=== PATIENT | female | born 1990 | race Caucasian/White ===

== ENCOUNTER 2022-06-06 07:21 | Inpatient (IN) ==
[2022-06-06] MEDS ORDERED: LIDOCAINE 1% LOCAL 20 ML VIAL INFIL PRN (07:53)
[2022-06-06] MEDS ORDERED: OXYTOCIN 30 UNITS/500 ML BAG IV PRN ×3 (07:53→17:09)
[2022-06-06] MEDS ORDERED: PENICILLIN G POTASSIUM 6 MU in DEXTROSE 5% 250 ML IV STA (07:53)
[2022-06-06 08:35] LABS: Hematocrit (blood only) 33.4 % (34.1-44.9); Hemoglobin 11.8 g/dl (12.0-16.0); Mean Corpuscular Hemoglobin 29.5 pg (25.0-34.0); Mean Corpuscular Hgb Conc 35.3 g/dL (32.0-36.0); Mean Corpuscular Volume 83.5 fL (80.0-100.0); Mean Platelet Volume 10.6 fL (9.4-12.3); Platelet Count 285 K/uL (130-400); RDW Coefficient of Variation 12.7 % (11.5-14.5); RDW Standard Deviation 38.4 fL (36.4-46.3); White Blood Count 10.87 K/ul (4.8-10.8)
[2022-06-06] MEDS: LACTATED RINGER'S 1,000 ML IV PRN ×2 (09:03→14:23)
--- NOTE | 2022-06-06 10:21 | History & Physical Report ---
Date of Service June 06, 2022 Assessment & Plan (1) Encounter for supervision of normal in multigravida, antepartum: Plan: IUP at 39 weeks with SPROM and only mild contractions GBS (+) will start pitocin augmentation of labor epidural analgesia when requested anticipate vaginal Admission and Anticipated Discharge Date Admission Date: June 06, 2022 History of Present Illness Primary Care Provider: Juan Carlos Bartlett DO Patient is 32 yo female EDC 06/14/22 who presents at 39+ weeks with leaking fluid. she had a gush at about 330 of clear fluid and then nothing more until 530 - no contractions noted. GBS (+) otherwise uncomplicated. Allergies Allergy/AdvReac Type Severity Reaction Status Date / Time No Known Allergies Allergy Verified 06/03/22 10:36 Home Medications Medication Instructions Recorded Confirmed Type prenat.vits,jenifer,akt-lpea-jejhy 1 tab PO DAILY 10/27/21 06/06/22 History Patient History Medical History Acne History of chicken pox PCOS (polycystic ovarian syndrome) Surgical History History of arthroscopic knee surgery S/P dilation and curettage D&E 2018 S/P wisdom tooth extraction Family History (Updated 10/27/21 @ 13:43 by Frida Rodriguez RN) Mother Thyroid cancer Preeclampsia Father Skin cancer Grandfather (Paternal) Pulmonary fibrosis Denies family history of Ovarian cancer Prostate cancer Diabetes Breast cancer Lung cancer Colorectal cancer Hypertension Social History (Updated 10/27/21 @ 13:44 by Frida Rodriguez RN) Smoking Status: Never smoker Second Hand Exposure: No; Hx Alcohol Use: No Hx Substance Use: No Preferred Language: Irish Communication Ability: Effective Visual Impairment: Limited Hearing Ability: Normal Battery Tester Required: No Beliefs That Will Affect Care: None marital status: marital status details: Perfecto Wise ) [phone] Current Living Situation: Spouse Current Living Situation Comment: FOB, 1 child and 1 dog current occupational status: 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 Other Information That Helps Us Care for You: No Feels Safe at Home: Yes Safety Concerns: Feels Safe At This Time Childhood Exposure to Second-Hand Smoke: No caffeine: Yes Dental Care, Regularly: Yes Physical Activity Frequency: 1-2 Times per Week Seatbelt Use: always Sunscreen Use: Yes Assistive Devices: None Review of Systems All systems reviewed & are unremarkable except as noted in HPI & below Physical Exam Constitutional: WD/WN, vitals as above Psychiatric: A+Ox3, euthymic affect Genitourinary: OB Exam Abdomen: + vertex (by ultrasound), + estimated weight (6-7 pounds) and + irregular contractions Manual OB Exam: + cervical dilation 2 cm, + cervical effacement 50%, + station high (-3 station) and + amniotic fluid clear and nitrazine positive OB Exam Monitor Tracing: + external FHT monitor used, + external uterine monitor used and + category I Results & Data ([facility]) Vital Signs (Past 12 Hours) Vital Signs Temp Pulse Resp BP 06/06/22 07:42 98.1 F 20 06/06/22 08:45 16 06/06/22 08:45 16 06/06/22 07:34 97 H 124/76 Coding Level of Care Code None Diagnoses Encounter for supervision of normal in multigravida, antepartum Z34.80
[2022-06-06] MEDS ORDERED: PENICILLIN G POTASSIUM 3 MU in DEXTROSE 5% 100 ML IV PRN (10:53)
[2022-06-06] MEDS ORDERED: ePHEDrine sulfate 50 MG/ML AMP ONE (14:09)
[2022-06-06] MEDS ORDERED: LIDOCAINE 2%/EPINEPHRINE 1:200,000 20 ML SDV ONE (14:10)
[2022-06-06] MEDS ORDERED: BUPIVACAINE 0.25% 30 ML VIAL ONE (14:10)
[2022-06-06] MEDS ORDERED: fentaNYL citrate 100 MCG/2 ML VIAL ONE (14:10)
[2022-06-06] MEDS ORDERED: SODIUM CHLORIDE 0.9% INJ 10 ML VIAL ONE (14:10)
[2022-06-06] MEDS ORDERED: fentaNYL 2MCG/ML ROPIVACAINE 1.25MG/ML 100 ML BAG EPI ONE (14:11)
--- NOTE | 2022-06-06 15:34 | Anesthesiology Consultation ---
Date of Service June 06, 2022 Assessment & Plan Chart Review Chart Review: Acceptable Risk for Labor Epidural Consults Requested none History Height/Weight Height: 5 ft 3 in Weight: 80.286 kg Allergies Allergy/AdvReac Type Severity Reaction Status Date / Time No Known Allergies Allergy Verified 06/03/22 10:36 Medications Home Medications Medication Instructions Recorded Confirmed Last Taken prenat.vits,jenifer,yym-[id number] 1 tab PO DAILY 10/27/21 06/06/22 Unknown Active Medications Generic Name Dose Route Start Last Admin Trade Name Freq PRN Reason Stop Dose Admin Oxytocin 30 units in 500 mls @ 3 mls/hr 06/06/22 07:53 06/06/22 13:34 Pitocin IV 06/08/22 07:52 0.18 units/hr .Q24H PRN 3 mls/hr Labor Induction/Augmentation Titration Protocol 0.18 UNITS/HR Lactated Ringer's 1,000 mls @ 125 mls/hr 06/06/22 07:53 06/06/22 14:50 Lr IV 06/08/22 07:52 125 mls/hr .Q8H PRN Infusion L&D Protocol Protocol Penicillin G Potassium 3 mu/ 106 mls @ 100 mls/hr 06/06/22 10:53 06/06/22 14:23 Dextrose IV 06/16/22 10:52 Infused Q4H PRN Infusion GBS(+) Until Delivery Past Medical History Medical History Acne History of chicken pox PCOS (polycystic ovarian syndrome) Past Family History Family History (Updated 10/27/21 @ 13:43 by Frida Rodriguez RN) Mother Thyroid cancer Preeclampsia Father Skin cancer Grandfather (Paternal) Pulmonary fibrosis Denies family history of Ovarian cancer Prostate cancer Diabetes Breast cancer Lung cancer Colorectal cancer Hypertension Past Surgical History Surgical History History of arthroscopic knee surgery S/P dilation and curettage D&E 2018 S/P wisdom tooth extraction Social History Smoking Status: Never smoker Hx Alcohol Use: No Hx Substance Use: No substance use type: does not use Physical Exam Vital Signs Last Vital Signs Temp 36.5 C 06/06/22 13:00 Pulse 84 06/06/22 15:32 Resp 22 06/06/22 14:30 BP 95/51 L 06/06/22 15:32 Pulse Ox 99 06/06/22 15:31 Testing Laboratory Results 06/06/22 08:09
[2022-06-06] MEDS ORDERED: NALOXONE HCL 0.4 MG/1 ML VIAL/CARP IV PRN (15:37)
[2022-06-06] MEDS ORDERED: NALOXONE HCL 1 MG in SODIUM CHLORIDE 0.9% 1000ML 1,000 ML IV PRN (15:37)
[2022-06-06] MEDS ORDERED: fentaNYL 2MCG/ML ROPIVACAINE 1.25MG/ML 100 ML BAG EPI PRN (15:37)
[2022-06-06] MEDS ORDERED: ePHEDrine sulfate 50 MG/ML AMP IV PRN (15:37)
[2022-06-06] MEDS ORDERED: diphenhydrAMINE 50 MG/ML VIAL IV PRN (15:37)
[2022-06-06] MEDS ORDERED: NALBUPHINE HCL INJ 10 MG/ML AMP IV PRN (15:37)
[2022-06-06] MEDS ORDERED: BENZOCAINE 20% AER SPR 82.5 GM CAN EXT PRN (17:09)
[2022-06-06] MEDS ORDERED: HYDROCORTISONE ACETATE 25 MG SUPP PR PRN (17:09)
[2022-06-06] MEDS ORDERED: IBUPROFEN 600 MG TAB PO PRN (17:09)
[2022-06-06] MEDS ORDERED: ACETAMINOPHEN 325 MG TAB PO PRN (17:09)
[2022-06-06] MEDS ORDERED: bisacodyL 10 MG SUPP PR PRN (17:09)
[2022-06-06] MEDS ORDERED: DIPHTHERIA/TETANUS/PERTUSSIS 0.5 ML SYR/VIAL IM ONE (17:09)
--- NOTE | 2022-06-06 17:28 | Anesthesia Procedure Note ---
Date of Service June 06, 2022 Anesthesia Post Epidural Note Vital Signs Vital Signs: Temp Pulse Resp BP Pulse Ox 36.5 C 83 22 113/59 L 99 06/06/22 13:00 06/06/22 17:23 06/06/22 14:30 06/06/22 17:23 06/06/22 16:51 Notes Mental Status: alert / awake / arousable Nausea / Vomiting: adequately controlled Pain: adequately controlled Airway Patency, RR, SpO2: stable & adequate BP & HR: stable & adequate Hydration State: stable & adequate Neuraxial Anesthesia: was administered and sensory block is resolving Anesthetic Complications: no major complications apparent and Pt Satisfied with anesthetic care Epidural: Removed without complications and With tip intact
--- NOTE | 2022-06-06 17:47 | Delivery Summary ---
Vaginal Delivery Summary Date of Service June 06, 2022 Vaginal Delivery Summary and 2nd Degree LAC Patient is a 32-year-old 2 para 1-0-0-1 female EDC of 06/14/2022 who presented with spontaneous rupture of membranes for clear fluid without regular contractions. She is GBS positive and 2 doses of penicillin G during the course of her labor prior to delivery. Pitocin augmentation of her contractions was begun. She requested epidural analgesia which was partially effective. She progressed to complete dilation and pushed effectively over intact perineum for delivery of a viable female infant over intact perineum. After the head was delivered the rest of the infant delivered easily and was placed on the mother's abdomen for further attention and drying. The infant was vigorous and moving all 4 limbs. After 1 minute the cord was clamped and cut. After cord blood was obtained, the placenta was expressed intact with a three-vessel cord. bleeding was controlled with dilute Pitocin and fundal massage. Estimated blood loss was 100 cc. Mother and infant were doing well after delivery. [facility] [place]ag[place] Delivery Charge Delivery Type Details: and 2nd Degree LAC
[2022-06-06] MEDS ORDERED: DOCUSATE SODIUM 100 MG CAP PO SCH (21:00)
[2022-06-07 06:13] LABS: Hematocrit (blood only) 31.3 % (34.1-44.9); Hemoglobin 10.8 g/dl (12.0-16.0)
--- NOTE | 2022-06-07 06:19 | Obstetrical Progress Note ---
Date of Service <Chary Guaman DO Quin - Last Filed: 06/07/22 06:47> June 07, 2022 Assessment & Plan <Chayr Guaman DO Quin - Last Filed: 06/07/22 06:47> (1) care following vaginal delivery: Patient is PPD 1 s/p and doing well. - Eating well, voiding well, ambulating well - Vitals reviewed and within normal limits - Pain well controlled with analgesics - OOB, ambulation, diet progression as tolerated - Blood type: O+, GBS pos, rubella immune - Plan to discharge today or tomorrow pending d/c of baby - After discharge, 6 [address] follow up with Dr. Maldonado <Sandra Keller MD, FACOG - Last Filed: 06/07/22 08:08> (1) care following vaginal delivery: Subjective <Chary RosaDO jossie - Last Filed: 06/07/22 06:47> Patient is a 32 yo female who is now PPD #1 following spontaneous vaginal delivery at 38+6 weeks. Reports feeling well this morning. She denies abdominal cramping and 0/10 pain well managed on analgesics. Voiding without issue. Tolerating regular meals overnight and able to ambulate some. She has passed gas but no bowel movements. Persistent lochia with some improvement this morning. Currently breast feeding. Review of Systems Denies fever, chills, sweats. Denies SOB, difficulty breathing, chest pain, palpitations, and chest pressure. Denies breast pain. Denies dysuria. Denies headache or changes in vision. Physical Exam <Chary OwensPaul Tsai DO - Last Filed: 06/07/22 06:47> General: Alert and oriented. No acute distress. CV: Regular rate and rhythm. No murmurs. Respiratory: CTA bilaterally. No rhonchi, wheezes, or crackles. No increased work of breathing. Abdomen: Positive bowel sounds. Soft, nontender, non distended. Uterus: Fundus firm and palpable 3 cm below the umbilicus. Lower extremities: No LE edema. No deep calf pain. Tory's negative bilaterally. Results & Data ([facility]) <Chary Tsai DO - Last Filed: 06/07/22 06:47> Vital Signs (Past 12 Hours) Vital Signs Temp Pulse Pulse Resp BP BP Pulse Ox 06/07/22 03:30 37.1 C 78 16 104/68 99 06/06/22 22:52 36.4 C L 77 18 103/65 99 06/06/22 19:29 36.5 C 70 16 116/72 98 06/06/22 19:15 78 18 115/66 06/06/22 18:38 20 06/06/22 19:08 78 06/06/22 19:08 115/66 06/06/22 18:52 83 06/06/22 18:52 106/59 L 06/06/22 18:38 71 06/06/22 18:38 106/55 L 06/06/22 18:22 72 06/06/22 18:22 110/63 O2 Del Method 06/07/22 03:30 Room Air 06/06/22 22:52 Room Air 06/06/22 19:29 Room Air 06/06/22 19:15 06/06/22 18:38 06/06/22 19:08 06/06/22 19:08 06/06/22 18:52 06/06/22 18:52 06/06/22 18:38 06/06/22 18:38 06/06/22 18:22 06/06/22 18:22 <Sandra Keller MD, FACOG - Last Filed: 06/07/22 08:08> Co-Signing Physician Notes Resident Physician Supervision Note: I interviewed and examined the patient. Discussed with Dr. Tsai and agree with findings and plan as documented in the note. Any exceptions or clarifications are listed here: [None] Documented By: Sandra Keller MD, FACOG Resident Activity Tracking <Chary Tsai, DO - Last Filed: 06/07/22 06:47> Resident Involvement: Resident Care Provided Care Provided: OB Delivery
[2022-06-07] MEDS ORDERED: PRENATAL VITAMIN 1 TAB PO SCH (08:00)
[2022-06-07] MEDS ORDERED: bisacodyL 5 MG TABEC PO SCH (20:00)
== END 2022-06-07 19:30 | disposition home or self-care (01) | DRG 807 ==
LOC: OPB 07:21 → 4S1 07:25 → 4E2 19:35